=== PATIENT | female | born 1990 | race Caucasian/White ===

== ENCOUNTER → 2020-09-27 | Outpatient (CLI) | payer OTHER ==
--- NOTE | 2020-09-27 11:09 | DIREP ---
PROCEDURE:MRI SPINE LUMBAR W/O COMPARISON:None. INDICATIONS:LOW BACK PAIN TECHNIQUE:A comprehensive examination was performed utilizing a variety of imaging planes and imaging parameters to optimize visualization of suspected pathology. Images were performed without intravenous gadolinium contrast. FINDINGS: ALIGNMENT:Normal. VERTEBRA:No fracture, pars defect, or osseous lesion. CORD/CAUDA EQUINA:Normal size, contour, and signal intensity. PARASPINAL AREA:Normal with no visible mass. OTHER:None. LUMBAR DISC LEVELS T12-L1:No significant disc/facet abnormality, spinal stenosis, or foraminal stenosis. L1-L2:No significant disc/facet abnormality, spinal stenosis, or foraminal stenosis. L2-L3:No significant disc/facet abnormality, spinal stenosis, or foraminal stenosis. L3-L4:No significant disc/facet abnormality, spinal stenosis, or foraminal stenosis. L4-L5:No significant disc/facet abnormality, spinal stenosis, or foraminal stenosis. L5-S1:Broad-based central disc protrusion indenting the ventral thecal sac without clear contact on traversing nerve roots, there may be minimal displacement of traversing left S1 nerve root in the thecal sac. Broad-based protrusion is superimposed on diffuse annular bulge which extends into the floor of the neural foramina producing mild bilateral narrowing. No central canal stenosis. CONCLUSION: 1. Bulge with superimposed broad-based disc protrusion at L5-S1. 2. Mild bilateral L5-S1 neural foraminal narrowing. Dictated by: Mehrdad Connor M.D. on 09/27/2020 at 11:05 AM
== END | disposition home or self-care (01) ==
LOC: RAD 08:54
PROVIDERS: ATTEND Nurse Practitioner Family
DX: M51.27 Other intervertebral disc displacement, lumbosacral region (principal); M48.07 Spinal stenosis, lumbosacral region
CPT/HCPCS: 72148